=== PATIENT | female | born 1960 | race Two or more races ===

== ENCOUNTER 2021-07-05 00:44 | Emergency (ER) | payer MEDICAID, OTHER ==
[~2021-07-05] VITALS: Ht 162.6 cm; Wt 77.1 kg
--- NOTE | 2021-07-05 01:00 | NUR ---
PT BIBRA C/O PALPITATIONS AT 2230. 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 PT DOES NOT REMEMBER MEDICATION NAME. PT DENIES PALPIATIONS, C/P, OR SOB AT THIS TIME. PT CHANGED INTO GOWN AND PLACED ON ADOPTION SERVICES MANAGER AND V/S STABLE HR [phone].
--- NOTE | 2021-07-05 01:13 | NUR ---
PT DID NOT WISH TO BE EVALUATED BY DOCTOR BARKER
[2021-07-05 01:21] VITALS: BP 122/65
== END 2021-07-05 01:20 | disposition left against medical advice (07) ==
LOC: ER 00:46
DX: Z53.21 Procedure and treatment not carried out due to patient leaving prior to being seen by health care provider (principal)

== ENCOUNTER 2022-10-29 18:10 | Emergency (ER) | payer MEDICAID ==
[~2022-10-29] VITALS: Ht 162.6 cm; Wt 83.5 kg
[2022-10-29] MEDS ORDERED: ACETAMINOPHEN ES 500 MG TABLET PO ONE (18:30)
[2022-10-29] MEDS ORDERED: ACETAMINOPHEN ES 500 MG TABLET ONE (18:31)
[2022-10-29 19:40] VITALS: BP 110/69; TEMP 98.1; O2SAT 100
== END 2022-10-29 19:41 | disposition home or self-care (01) ==
LOC: ER 18:13
DX: M25.561 Pain in right knee (principal); J45.909 Unspecified asthma, uncomplicated; E11.9 Type 2 diabetes mellitus without complications; Z88.8 Allergy status to other drugs, medicaments and biological substances
CPT/HCPCS: 73564-TC

== ENCOUNTER 2023-09-19 14:41 | Emergency (ER) | payer MEDICAID ==
[~2023-09-19] VITALS: Ht 162.6 cm; Wt 74.4 kg
[2023-09-19 15:23] VITALS: BP 103/69; TEMP 98.2
[2023-09-19 17:23] VITALS: O2SAT 98
== END 2023-09-19 17:24 | disposition home or self-care (01) ==
LOC: ER 14:44
DX: J20.8 Acute bronchitis due to other specified organisms (principal); I10 Essential (primary) hypertension; E11.9 Type 2 diabetes mellitus without complications; Z88.6 Allergy status to analgesic agent
CPT/HCPCS: 71045-TC; 86403-TC; 87070-TC

== ENCOUNTER 2025-01-20 08:48 | Inpatient (IN) | payer MEDICAID ==
[~2025-01-20] VITALS: Ht 162.6 cm; Wt 66.2 kg
[2025-01-20] MEDS ORDERED: MORPHINE SULFATE INJ 2 MG/ML DISP.SYRIN ONE (09:07)
[2025-01-20] MEDS ORDERED: ONDANSETRON HCL/PF 4 MG/2 ML VIAL ONE (09:07)
[2025-01-20] MEDS: IV NS 0.9% 1,000 ML BAG IV ONE (09:24)
[2025-01-20 09:25] LABS: PLATELET COUNT (AUTO) 241 K/uL (150-450); RED BLOOD CELL COUNT(AUTO) 4.31 MIL/uL (4.0-5.2); RED CELL DISTRIBUTION WIDTH 14.5 % (11.5-15.0); WHITE BLOOD COUNT (AUTO) 6.6 K/uL (4.3-11.0)
[2025-01-20] MEDS: MORPHINE SULFATE INJ 2 MG/ML DISP.SYRIN IV ONE (09:25)
[2025-01-20] MEDS: ONDANSETRON HCL/PF 4 MG/2 ML VIAL IVP ONE (09:26)
[2025-01-20 09:34] LABS: CALCIUM, SERUM 9.5 mg/dL (8.5-10.1); CREATININE 0.9 mg/dL (0.6-1.3); SODIUM SERUM 140.0 mmol/L (136-145); UREA NITROGEN, BLOOD 17.0 mg/dL (7-18)
[2025-01-20 09:40] LABS: ASPARTATE AMINOTRANSFERASE 22.0 U/L (15-37); TOTAL PROTEIN, SERUM 7.2 g/dL (6.4-8.2)
[2025-01-20] MEDS ORDERED: FAMOTIDINE/PF INJ 20 MG/2 ML VIAL IV ONE (09:48)
[2025-01-20] MEDS: FAMOTIDINE/PF INJ 20 MG/2 ML VIAL IV ONE (09:50)
[2025-01-20] MEDS ORDERED: AMLO-213 PO (09:51)
[2025-01-20] MEDS ORDERED: METO50TA16 PO (09:51)
[2025-01-20] MEDS ORDERED: APIX5TAB PO (09:51)
[2025-01-20 10:05] LABS: APPEARANCE,URINE SLIGHTLY CLOUDY (CLEAR); BLOOD, URINE 3+ Ery/uL (NEGATIVE); LEUKOCYTE ESTERASE ,URINE 2+ (NEGATIVE); NITRITE, URINE NEGATIVE (NEGATIVE); UGLUCOSE TRACE mg/dL (NEGATIVE)
[2025-01-20 10:06] LABS: ADD URINE CULTURE YES; SQUAMOUS EPITHELIAL CELL,UR Moderate /HPF (None Seen)
[2025-01-20] MEDS ORDERED: CEFTRIAXONE 1GM BAG (ER ONLY) 50 ML IV ONE (10:31)
[2025-01-20] MEDS: CEFTRIAXONE 1GM BAG (ER ONLY) 1 GM/50 ML PIGGYBACK IV ONE (10:35)
[2025-01-20] MEDS ORDERED: CALCIUM CARBONATE 500 MG TAB.CHEW ONE (10:45)
[2025-01-20] MEDS: CALCIUM CARBONATE 500 MG TAB.CHEW PO ONE (10:45)
[2025-01-20] MEDS ORDERED: MAG HYDROX/AL HYDROX/SIMETH 30 ML UDC PO PRN (11:30)
[2025-01-20] MEDS ORDERED: hydrALAZINE HCL IV 20 MG VIAL IV PRN (11:30)
[2025-01-20] MEDS ORDERED: DOSING PER PHARMACY-CEFEPIME IVPB XX PRN (11:30)
[2025-01-20] MEDS ORDERED: MORPHINE SULFATE INJ 2 MG/ML DISP.SYRIN IV PRN (11:30)
[2025-01-20 12:35] VITALS: BP 103/70; TEMP 97.5; O2SAT 95
[2025-01-20] MEDS: IV NS 0.9% 1,000 ML IV SCH (12:50)
[2025-01-20] MEDS: PANTOPRAZOLE 40 MG VIAL IV SCH (12:51)
[2025-01-20] MEDS: METOPROLOL TARTRATE 50 MG TABLET PO SCH (12:51)
[2025-01-20] MEDS: ENOXAPARIN SODIUM 80 MG/0.8 ML DISP.SYRIN SQ SCH (12:52)
[2025-01-20] MEDS: CEFEPIME 2 GM in IV D5W 100 ML IV SCH (13:16)
[2025-01-20 16:00] VITALS: BP 105/71; TEMP 97.6; O2SAT 99
[2025-01-20] MEDS ORDERED: APIXABAN 5 MG TABLET PO SCH (17:00)
[2025-01-20] MEDS: ONDANSETRON HCL/PF 4 MG/2 ML VIAL IVP PRN (21:37)
[2025-01-20 21:44] VITALS: BP 121/90; TEMP 98.1; O2SAT 99
[2025-01-21 07:30] VITALS: BP 119/71; TEMP 97.6; O2SAT 98
[2025-01-21 07:30] LABS: PLATELET COUNT (AUTO) 216 K/uL (150-450); RED BLOOD CELL COUNT(AUTO) 4.03 MIL/uL (4.0-5.2); RED CELL DISTRIBUTION WIDTH 14.8 % (11.5-15.0); WHITE BLOOD COUNT (AUTO) 4.6 K/uL (4.3-11.0)
[2025-01-21 07:59] LABS: ASPARTATE AMINOTRANSFERASE 26.0 U/L (15-37); CALCIUM, SERUM 8.4 mg/dL (8.5-10.1); CREATININE 0.7 mg/dL (0.6-1.3); PHOSPHORUS 3.3 mg/dL (2.5-4.9); SODIUM SERUM 144.0 mmol/L (136-145); TOTAL PROTEIN, SERUM 5.8 g/dL (6.4-8.2); UREA NITROGEN, BLOOD 10.0 mg/dL (7-18)
[2025-01-21] MEDS: AMLODIPINE BESYLATE 10 MG TABLET PO SCH (09:05)
[2025-01-21 16:00] VITALS: BP 117/81; TEMP 98.1; O2SAT 99
[2025-01-21] MEDS ORDERED: ANESTHESIA TRAY IN PYXIS 1 EA TRAY MC ONE (17:07)
[2025-01-21 20:47] VITALS: BP_SYST 120; BP_SYST 131; BP_DIAS 106; BP_DIAS 83; TEMP 97.9; TEMP 98.1; O2SAT 96; O2SAT 97
[2025-01-21] MEDS: SUCRALFATE 1 G/10 ML UDC GT SCH (21:46)
[2025-01-22] MEDS: ACETAMINOPHEN 325 MG TABLET PO PRN (02:28)
[2025-01-22] MEDS ORDERED: PANT40TA2 PO (07:29)
[2025-01-22] MEDS ORDERED: SUCR1TAB31 PO (07:29)
[2025-01-22 08:15] VITALS: BP 126/82
== END 2025-01-22 10:20 | disposition home or self-care (01) | DRG 241 ==
LOC: ER 08:55 → MED 11:31
PROVIDERS: ADMIT Internal Medicine; ATTEND Internal Medicine
PROC: 0D768ZZ Dilation of Stomach, Via Natural or Artificial Opening Endoscopic (ICD-10-PCS; principal; 2025-01-21 19:10)
DX: K28.4 Chronic or unspecified gastrojejunal ulcer with hemorrhage (principal); R13.10 Dysphagia, unspecified; I10 Essential (primary) hypertension; B96.89 Other specified bacterial agents as the cause of diseases classified elsewhere; E11.9 Type 2 diabetes mellitus without complications; N39.0 Urinary tract infection, site not specified; K31.89 Other diseases of stomach and duodenum; I48.91 Unspecified atrial fibrillation; Z98.84 Bariatric surgery status; Z90.49 Acquired absence of other specified parts of digestive tract; Z86.718 Personal history of other venous thrombosis and embolism
CPT/HCPCS: 36415; 80048-TC; 80053-TC; 80076-TC; 81001; 83690-TC; 83735-TC; 84100-TC; 85025-TC; 87086-TC; 93307-TC; C1726; G0378; J0360; J0692; J0696; J1308; J1650; J2270; J2405; J2470; J2704; J3490; J7030; J7060